=== PATIENT | female | born 1965 | race Caucasian/White ===

== ENCOUNTER → 2016-07-29 | Outpatient (CLI) | payer MEDICAID ==
--- NOTE | 2016-07-30 08:59 | Diagnostic Imaging Report ---
INDICATION: Digital screening mammography. The current study was also evaluated with a Computer Aided Detection (CAD) system. Comparison is made to previous studies of 12/29/2012 and 05/25/2014. FINDINGS: There is mild breast parenchymal density, bilaterally. Occasional benign calcifications are again noted. There is no evidence of new dominant mass or suspicious calcification of either breast. IMPRESSION: Continued physical examination and annual mammographic followup are recommended. ACR BI-RADS Category 2: Benign findings. Result letter will be mailed to the patient. Note: At least 10% of breast cancer is not imaged by mammography. Dictated by: Dictated on workstation # [id number]
== END ==
LOC: RAD 14:28
PROVIDERS: ATTEND Nurse Practitioner Family
DX: Z12.31 Encounter for screening mammogram for malignant neoplasm of breast (principal)